=== PATIENT | female | born 1960 | race Caucasian/White ===

== ENCOUNTER → 2017-10-07 08:14 | Outpatient (CLI) | payer MEDICAID ==
[2016-06-05 14:03] VITALS: BMI 25.2
[~2017-10-07 08:14] MED LIST: AMITRIPTYLINE100 MG PO; ATIVAN2 MG PO; BACTRIM 400-801 TAB; BACTRIM DS TABL1 TAB PO; CARAFATE1 G PO; CARAFATE1 G/10 ML PO; CARBATROL 200200 MG PO; CARBATROL300 MG PO; DILAUDID2 MG PO; DOLOPHINE HCL5 MG; FLAGYL 500500 MG/100 PO; FLAGYL500 MG PO; IMITREX50 MG PO; K-DUR20 MEQ PO; KEPPRA500 MG PO; LEVAQUIN PREMI750 MG PO; MAXALT10 MG PO; METHADONE 10 MG10 MG PO; METOPROLOL TART50 MG PO; MIRALAX17 GM PO; MONODOX50 MG PO; NEURONTIN 100100 MG PO; NEURONTIN 400400 MG PO; NICODERM C1 PATCH .1 TD; NICODERM C1 PATCH .3 TD; PEPCID40 MG PO; PERCOCET 10/3251 TA1 PO; PLAQUENIL200 MG; PRILOSEC20 MG PO; PROTONIX40 MG PO; SOMA350 MG PO; TEGRETOL200 MG; VALTREX500 MG; VISTARIL25 MG PO; VISTARIL50 MG; ZANTAC150 MG PO; ZETIA10 MG PO; [UNRECOGNIZED DRUG - OTHER] PO
== END | disposition home or self-care (01) ==
LOC: D.RT 08:14
DX: J44.9 Chronic obstructive pulmonary disease, unspecified (principal)

== ENCOUNTER 2017-10-07 10:05 | Emergency (ER) | payer MEDICAID ==
[2016-06-05 14:03] VITALS: BMI 25.2
[2017-10-07 10:47] LABS: BASOPHILS 0.4 % (0-2); EOSINOPHILS 2.8 % (0-7); HEMOGLOBIN 11.1 g/dL (12-16); IMMATURE GRANULOCYTES 0.4 % (0-5); LYMPHOCYTES 20.7 % (15-50); MCHC 33.6 g/dL (31.0-37.0); MCV 89.2 fL (80.0-100.0); MEAN PLATELET VOLUME 8.8 fL (7.4-10.4); MONOCYTES 12.8 % (2-11); NEUTROPHILS 62.9 % (40-80); WBC 7.6 10x3/uL (4.8-10.8)
[2017-10-07 10:56] LABS: ALBUMIN 3.4 g/dL (3.4-5.0); ALKALINE PHOSPHATASE 135 U/L (46-116); ALT (SGPT) 46 U/L (10-68); BILIRUBIN - TOTAL 0.16 mg/dL (0.2-1.3); CALC OSMOLALITY 277 mosm/kg (275-300); CALCIUM 8.7 mg/dL (8.5-10.1); CARBON DIOXIDE 28.5 mmol/L (21.0-32.0); CHLORIDE - SERUM 99 mmol/L (98-107); CREATININE - SERUM 0.7 mg/dL (0.6-1.3); GLUCOSE 109 mg/dL (74-106); POTASSIUM - SERUM 3.7 mmol/L (3.5-5.1); PROTEIN - SERUM 7.7 g/dL (6.4-8.2); SODIUM 138 mmol/L (136-145); UREA NITROGEN 15 mg/dL (7-18); eGFR NON AFRICAN AMERICAN > 90 mL/min (90-120)
[2017-10-07 11:01] LABS: PLATELET COUNT 413 10x3/uL (130-400)
[2017-10-07 11:05] LABS: MAGNESIUM - SERUM 2.1 mg/dL (1.8-2.4)
[2017-10-07 11:08] LABS: CARBAMAZEPINE (TEGRETOL) 16.9 ug/mL (4.0-12.0)
== END 2017-10-07 12:39 | disposition home or self-care (01) ==
LOC: D.ER 10:05
PROVIDERS: Emergency Medicine
DX: G40.909 Epilepsy, unspecified, not intractable, without status epilepticus (principal); D64.9 Anemia, unspecified; T42.1X5A Adverse effect of iminostilbenes, initial encounter; Y92.019 Unspecified place in single-family (private) house as the place of occurrence of the external cause; F12.90 Cannabis use, unspecified, uncomplicated; F17.200 Nicotine dependence, unspecified, uncomplicated

== ENCOUNTER → 2019-09-16 08:28 | Outpatient (CLI) | payer MEDICAID ==
[2016-06-05 14:03] VITALS: BMI 25.2
== END | disposition home or self-care (01) ==
LOC: D.RAD 01-25 08:45 → D.RT 01-25 08:45 → D.RAD 01-26 11:00 → D.RT 07-12 10:45
PROVIDERS: ATTEND Internal Medicine Pulmonary Disease
DX: J44.9 Chronic obstructive pulmonary disease, unspecified (principal)

== ENCOUNTER → 2020-11-16 16:25 | Outpatient (CLI) | payer MEDICARE, MEDICAID ==
[2016-06-05 14:03] VITALS: BMI 25.2
== END | disposition home or self-care (01) ==
LOC: D.LAB 16:25
PROVIDERS: ATTEND Internal Medicine Pulmonary Disease
DX: Z11.52 Encounter for screening for COVID-19 (principal)

== ENCOUNTER → 2020-11-21 08:36 | Outpatient (CLI) | payer MEDICAID ==
[2016-06-05 14:03] VITALS: BMI 25.2
== END | disposition home or self-care (01) ==
LOC: D.RT 11-14 09:00 → D.RAD 11-14 10:00 → D.RT 08:00
PROVIDERS: ATTEND Internal Medicine Pulmonary Disease
DX: J44.9 Chronic obstructive pulmonary disease, unspecified (principal)